=== PATIENT | female | born 1965 | race Caucasian/White ===

== ENCOUNTER 2022-02-06 10:58 | Day surgery (SDC) | payer OTHER ==
[~2022-02-06] VITALS: Ht 160 cm; Wt 53.1 kg
[2022-02-06] VITALS (8 sets, daily range): BP systolic 94–121; BP diastolic 49–77
[2022-02-06] MEDS ORDERED: 0.9%NACL 1000ML 1,000 ML IV ONE (11:23)
[2022-02-06] MEDS ORDERED: PROPOFOL 10 MG/ML 20ML VIAL IV ONE ×3 (13:35→13:47)
== END 2022-02-06 15:10 | disposition home or self-care (01) ==
LOC: DAH 10:58 → ENDO 10:58
PROVIDERS: ATTEND Internal Medicine Gastroenterology
DX: K62.5 Hemorrhage of anus and rectum (principal); K59.00 Constipation, unspecified; K63.5 Polyp of colon; K21.00 Gastro-esophageal reflux disease with esophagitis, without bleeding; K64.1 Second degree hemorrhoids; R11.2 Nausea with vomiting, unspecified; K76.89 Other specified diseases of liver; K29.50 Unspecified chronic gastritis without bleeding; R10.33 Periumbilical pain; Z83.3 Family history of diabetes mellitus; Z80.1 Family history of malignant neoplasm of trachea, bronchus and lung; Z87.891 Personal history of nicotine dependence; Z72.89 Other problems related to lifestyle; Z79.899 Other long term (current) drug therapy
CPT/HCPCS: 87426; 45380; 43239; J7030; J2704 ×3